=== PATIENT | female | born 1960 | race American Indian/Alaskan Native ===

== ENCOUNTER 2017-07-04 10:57 | Emergency (ER) | payer MEDICAID ==
[~2017-07-04] VITALS: Ht 160 cm; Wt 100.0 kg
[~2017-07-04 10:57] MED LIST: ALBU18HF2 INH; BACL10TA PO; DOCU-20 PO; HYDR-569 PO; NAPR-56 PO; RANI150C4 PO
[2017-07-04 11:25] LABS: BASOPHILS % (AUTO) 0.6 % (0-1); EOSINOPHILS # (AUTO) 0.3 X10'3 (0-0.9); EOSINOPHILS % (AUTO) 5.5 % (0-6); HEMATOCRIT 39.2 % (35.0-45.0); LYMPHOCYTES # (AUTO) 1.9 X10'3 (1.1-4.8); LYMPHOCYTES % (AUTO) 36.3 % (21-51); MEAN CORPUSCULAR HEMOGLOBIN 31.1 PG (27.0-31.0); MEAN CORPUSCULAR HGB CONC 35.7 % (33.0-36.5); MONOCYTES # (AUTO) 0.3 X10'3 (0-0.9); MONOCYTES % (AUTO) 4.8 % (2-12); NEUTROPHILS # (AUTO) 2.8 X10'3 (1.8-7.7); NEUTROPHILS % (AUTO) 52.8 % (42-75); PLATELET COUNT 219 X10'3 (140-440); RED CELL DISTRIBUTION WIDTH 13.2 % (11.5-14.5); WHITE BLOOD COUNT 5.3 X10'3 (4.5-11.0)
[2017-07-04 11:36] LABS: INR 0.9 INR; PARTIAL THROMBOPLASTIN TIME 25 SECONDS (22-32); PROTHROMBIN TIME 9.8 SECONDS (9.0-12.0)
[2017-07-04 11:40] LABS: ALANINE AMINOTRANSFERASE 16 U/L (12-78); ALBUMIN 3.7 G/DL (3.4-5.0); ALBUMIN/GLOBULIN RATIO 1.1 (1.1-1.5); ALKALINE PHOSPHATASE 97 IU/L (46-116); ANION GAP 9 (8-16); ASPARTATE AMINO TRANSFERASE 15 U/L (10-37); BILIRUBIN,TOTAL 0.9 MG/DL (0.1-1.0); BLOOD UREA NITROGEN 13 MG/DL (7-18); BUN/CREATININE RATIO 16.3 (6.6-38.0); CALCIUM 8.9 MG/DL (8.5-10.1); CHLORIDE 109 MMOL/L (99-107); GLUCOSE 101 MG/DL (70-104); POTASSIUM 4.3 MMOL/L (3.5-5.1); SODIUM 145 MMOL/L (135-145); TOTAL CARBON DIOXIDE 27.5 MMOL/L (24-32); TOTAL PROTEIN 7.2 G/DL (6.4-8.2); eGFR 74 ML/MIN
[2017-07-04 12:30] VITALS: BP 148/87
== END 2017-07-04 12:31 | disposition home or self-care (01) ==
LOC: ER 10:57
DX: R07.89 Other chest pain (principal); E78.00 Pure hypercholesterolemia, unspecified; I10 Essential (primary) hypertension; Z98.890 Other specified postprocedural states; Z98.51 Tubal ligation status; Z87.891 Personal history of nicotine dependence; Z88.2 Allergy status to sulfonamides; Z91.040 Latex allergy status; Z91.013 Allergy to seafood; Z79.899 Other long term (current) drug therapy
CPT/HCPCS: 36415; 71045; 80053; 84484; 85025; 85610; 85730; 93005; 99285; J7030

== ENCOUNTER 2018-01-17 19:04 | Emergency (ER) | payer MEDICAID ==
[~2018-01-17] VITALS: Ht 160 cm; Wt 108.0 kg
[2018-01-17 19:06] VITALS: BP 162/81
[2018-01-17] MEDS ORDERED: PRED50TA PO (21:18)
== END 2018-01-17 21:27 | disposition home or self-care (01) ==
LOC: ER 19:05
DX: L53.8 Other specified erythematous conditions (principal); T78.40XA Allergy, unspecified, initial encounter; R22.0 Localized swelling, mass and lump, head; L29.9 Pruritus, unspecified; E78.00 Pure hypercholesterolemia, unspecified; I10 Essential (primary) hypertension; Z90.710 Acquired absence of both cervix and uterus; Z98.890 Other specified postprocedural states; Z98.51 Tubal ligation status; Z88.1 Allergy status to other antibiotic agents; Z88.2 Allergy status to sulfonamides; Z91.040 Latex allergy status; Z79.899 Other long term (current) drug therapy; Z91.013 Allergy to seafood; Y92.9 Unspecified place or not applicable
CPT/HCPCS: 99283

== ENCOUNTER 2019-05-29 08:36 | Emergency (ER) | payer MEDICAID ==
[~2019-05-29] VITALS: Ht 160 cm; Wt 107.7 kg
[~2019-05-29 08:36] MED LIST changes: +HYDR-4383 PO; -HYDR-569 PO; +PRED50TA PO
[2019-05-29 09:15] LABS: BASOPHILS % (AUTO) 0.6 % (0-1); EOSINOPHILS # (AUTO) 0.4 X10'3 (0-0.9); HEMOGLOBIN 14.6 g/dl (12.0-16.0); MEAN CORPUSCULAR HEMOGLOBIN 31.3 PG (27.0-31.0); MEAN CORPUSCULAR HGB CONC 34.8 g/dL (33.0-36.5); MEAN PLATELET VOLUME 6.9 FL (7.4-10.4); MONOCYTES # (AUTO) 0.4 X10'3 (0-0.9); MONOCYTES % (AUTO) 5.7 % (2-12); NEUTROPHILS # (AUTO) 3.5 X10'3 (1.8-7.7); NEUTROPHILS % (AUTO) 55.7 % (42-75); PLATELET COUNT 236 X10'3 (140-440); RED BLOOD COUNT 4.67 X10'6 (4.20-5.60); RED CELL DISTRIBUTION WIDTH 13.3 % (11.5-14.5); WHITE BLOOD COUNT 6.3 X10'3 (4.5-11.0)
[2019-05-29 09:16] LABS: CLARITY,URINE SLIGHTLY CLOUDY (Clear); COLOR,URINE YELLOW (Yellow); GLUCOSE, URINE NEGATIVE (Neg); KETONES,URINE NEGATIVE (Neg); LEUKOCYTE ESTERASE ,URINE NEGATIVE (Neg); NITRITES, URINE NEGATIVE (Neg); OCCULT BLOOD,URINE MODERATE (Neg); PH,URINE 5.5 (4.8-8.0); PROTEIN,URINE NEGATIVE (Neg); UROBILINOGEN,URINE 0.2 E.U/dL (0.2-1.0)
[2019-05-29 09:20] LABS: UA COLLECTION TYPE CLN CATCH MIDSTREAM
[2019-05-29 09:28] LABS: ALANINE AMINOTRANSFERASE 30 U/L (12-78); ALBUMIN 3.8 G/DL (3.4-5.0); ALKALINE PHOSPHATASE 110 IU/L (46-116); ANION GAP 9 (8-16); ASPARTATE AMINO TRANSFERASE 20 U/L (10-37); BILIRUBIN,TOTAL 1.4 MG/DL (0.1-1.0); BLOOD UREA NITROGEN 11 MG/DL (7-18); BUN/CREATININE RATIO 12.1 (6.6-38.0); CALCIUM 8.7 MG/DL (8.5-10.1); CHLORIDE 108 MMOL/L (99-107); CREATININE 0.91 MG/DL (0.40-0.90); GLUCOSE 105 MG/DL (70-104); LIPASE 135 U/L (73-393); POTASSIUM 4.1 MMOL/L (3.5-5.1); SODIUM 144 MMOL/L (135-145); TOTAL CARBON DIOXIDE 26.8 MMOL/L (24-32); TOTAL PROTEIN 7.7 G/DL (6.4-8.2); eGFR 63 ML/MIN
[2019-05-29 09:32] LABS: MUCUS STRANDS FEW /LPF (Neg); SQUAMOUS EPITHELIAL CELL,UR MANY /LPF (FEW)
[2019-05-29 09:34] LABS: BACTERIA,URINE 1+ /HPF (Neg); RBC,URINE 0-2 /HPF (0-2); WBC,URINE 0-4 /HPF (0-4)
[2019-05-29] MEDS ORDERED: ondansetron/PF 4mg/2ml inj IV ONE (09:55)
[2019-05-29] MEDS ORDERED: morphine 4 MG/ML inj SYRINge IV ONE (09:55)
[2019-05-29] MEDS ORDERED: ONDA4TAB6 PO (12:08)
[2019-05-29] MEDS ORDERED: HYDR-3965 PO (12:08)
[2019-05-29 12:32] VITALS: BP 121/90
== END 2019-05-29 12:36 | disposition home or self-care (01) ==
LOC: ER 08:37
DX: R10.31 Right lower quadrant pain (principal); R10.32 Left lower quadrant pain; R11.0 Nausea; R50.9 Fever, unspecified; E78.00 Pure hypercholesterolemia, unspecified; I10 Essential (primary) hypertension; G89.29 Other chronic pain; F10.99 Alcohol use, unspecified with unspecified alcohol-induced disorder; Z90.710 Acquired absence of both cervix and uterus; Z98.890 Other specified postprocedural states; Z98.51 Tubal ligation status; Z91.013 Allergy to seafood; Z88.2 Allergy status to sulfonamides; Z88.1 Allergy status to other antibiotic agents; Z88.6 Allergy status to analgesic agent; Z91.040 Latex allergy status; Z88.8 Allergy status to other drugs, medicaments and biological substances; Z79.899 Other long term (current) drug therapy; Y90.9 Presence of alcohol in blood, level not specified
CPT/HCPCS: 36415; 74176; 80053; 81001; 83690; 84484; 85025; 93005; 96374; 96375; 99284; J2270; J2405

== ENCOUNTER 2020-06-26 19:22 | Emergency (ER) | payer MEDICAID ==
[~2020-06-26] VITALS: Ht 162.6 cm; Wt 51.1 kg
[~2020-06-26 19:22] MED LIST changes: +ONDA4TAB6 PO
[2020-06-26 20:03] LABS: BASOPHILS # (AUTO) 0.1 X10'3 (0-0.2); BASOPHILS % (AUTO) 0.7 % (0-1); EOSINOPHILS # (AUTO) 0.3 X10'3 (0-0.9); EOSINOPHILS % (AUTO) 4.7 % (0-6); HEMATOCRIT 40.5 % (35.0-45.0); HEMOGLOBIN 13.7 g/dl (12.0-16.0); LYMPHOCYTES # (AUTO) 2.9 X10'3 (1.1-4.8); LYMPHOCYTES % (AUTO) 39.7 % (21-51); MEAN CORPUSCULAR HEMOGLOBIN 30.5 PG (27.0-31.0); MEAN CORPUSCULAR HGB CONC 33.9 g/dL (33.0-36.5); MEAN CORPUSCULAR VOLUME 89.8 FL (78-98); MEAN PLATELET VOLUME 7.2 FL (7.4-10.4); MONOCYTES # (AUTO) 0.4 X10'3 (0-0.9); MONOCYTES % (AUTO) 5.4 % (2-12); NEUTROPHILS # (AUTO) 3.6 X10'3 (1.8-7.7); NEUTROPHILS % (AUTO) 49.5 % (42-75); PLATELET COUNT 246 X10'3 (140-440); RED BLOOD COUNT 4.51 X10'6 (4.20-5.60); RED CELL DISTRIBUTION WIDTH 13.7 % (11.5-14.5); WHITE BLOOD COUNT 7.2 X10'3 (4.5-11.0)
[2020-06-26 20:08] LABS: ALANINE AMINOTRANSFERASE 31 U/L (12-78); ALBUMIN 3.9 G/DL (3.4-5.0); ALKALINE PHOSPHATASE 109 IU/L (46-116); ANION GAP 9 (8-16); ASPARTATE AMINO TRANSFERASE 22 U/L (10-37); BLOOD UREA NITROGEN 13 MG/DL (7-18); BUN/CREATININE RATIO 15.3 (6.6-38.0); CALCIUM 9.1 MG/DL (8.5-10.1); CHLORIDE 107 MMOL/L (99-107); CREATININE 0.85 MG/DL (0.40-0.90); GLUCOSE 101 MG/DL (70-104); POTASSIUM 3.8 MMOL/L (3.5-5.1); SODIUM 142 MMOL/L (135-145); TOTAL CARBON DIOXIDE 26.2 MMOL/L (24-32); TOTAL PROTEIN 7.7 G/DL (6.4-8.2); eGFR 68 ML/MIN
[2020-06-26 23:10] VITALS: BP 137/87
== END 2020-06-26 23:30 | disposition home or self-care (01) ==
LOC: ER 19:22
DX: R07.82 Intercostal pain (principal); R06.02 Shortness of breath; E78.00 Pure hypercholesterolemia, unspecified; I10 Essential (primary) hypertension; Z72.89 Other problems related to lifestyle; Z91.041 Radiographic dye allergy status; Z91.040 Latex allergy status; Z91.013 Allergy to seafood; Z88.1 Allergy status to other antibiotic agents; Z88.2 Allergy status to sulfonamides; Z88.8 Allergy status to other drugs, medicaments and biological substances; Z79.899 Other long term (current) drug therapy
CPT/HCPCS: 36415; 71045; 80053; 83880; 84484; 85025; 93005; 99285

== ENCOUNTER 2020-10-25 21:37 | Emergency (ER) | payer MEDICAID ==
[~2020-10-25] VITALS: Ht 160 cm; Wt 113.6 kg
[~2020-10-25 21:37] MED LIST changes: -DOCU-20 PO; +DOCU-348 PO
[2020-10-25 21:57] VITALS: BP 139/67
[2020-10-25 22:18] LABS: BASOPHILS % (AUTO) 0.6 % (0-1); EOSINOPHILS # (AUTO) 0.3 X10'3 (0-0.9); EOSINOPHILS % (AUTO) 4.4 % (0-6); HEMOGLOBIN 13.6 g/dl (12.0-16.0); LYMPHOCYTES # (AUTO) 2.7 X10'3 (1.1-4.8); LYMPHOCYTES % (AUTO) 40.1 % (21-51); MEAN CORPUSCULAR HEMOGLOBIN 30.7 PG (27.0-31.0); MEAN CORPUSCULAR VOLUME 90.3 FL (78-98); MEAN PLATELET VOLUME 7.1 FL (7.4-10.4); MONOCYTES # (AUTO) 0.5 X10'3 (0-0.9); MONOCYTES % (AUTO) 7.1 % (2-12); NEUTROPHILS # (AUTO) 3.3 X10'3 (1.8-7.7); NEUTROPHILS % (AUTO) 47.8 % (42-75); PLATELET COUNT 235 X10'3 (140-440); RED BLOOD COUNT 4.43 X10'6 (4.20-5.60); RED CELL DISTRIBUTION WIDTH 13.9 % (11.5-14.5); WHITE BLOOD COUNT 6.8 X10'3 (4.5-11.0)
[2020-10-25] MEDS ORDERED: normal saline 1000ML IV soln IVB ONE (22:20)
[2020-10-25] MEDS ORDERED: ondansetron/PF 4mg/2ml inj IV ONE (22:20)
[2020-10-25 22:27] LABS: ALANINE AMINOTRANSFERASE 23 U/L (12-78); ALBUMIN 3.7 G/DL (3.4-5.0); ALBUMIN/GLOBULIN RATIO 0.9 (1.1-1.5); ALKALINE PHOSPHATASE 117 IU/L (46-116); ANION GAP 9 (8-16); ASPARTATE AMINO TRANSFERASE 19 U/L (10-37); BILIRUBIN,TOTAL 1.2 MG/DL (0.1-1.0); BLOOD UREA NITROGEN 12 MG/DL (7-18); BUN/CREATININE RATIO 12.6 (6.6-38.0); CALCIUM 9.4 MG/DL (8.5-10.1); CHLORIDE 107 MMOL/L (99-107); CREATININE 0.95 MG/DL (0.40-0.90); GLUCOSE 125 MG/DL (70-104); POTASSIUM 3.8 MMOL/L (3.5-5.1); SODIUM 146 MMOL/L (135-145); TOTAL CARBON DIOXIDE 30.3 MMOL/L (24-32); TOTAL PROTEIN 7.7 G/DL (6.4-8.2); eGFR 60 ML/MIN
[2020-10-25 22:34] LABS: TROPONIN I < 0.04 NG/ML (0.0-0.05)
[2020-10-25 23:29] LABS: D-DIMER 0.86 MG/L FEU (0-0.50)
== END 2020-10-26 01:38 | disposition home or self-care (01) ==
LOC: ER 21:37
DX: R42 Dizziness and giddiness (principal); I11.0 Hypertensive heart disease with heart failure; E78.00 Pure hypercholesterolemia, unspecified; Z88.5 Allergy status to narcotic agent; Z91.013 Allergy to seafood; Z88.2 Allergy status to sulfonamides; Z88.1 Allergy status to other antibiotic agents; Z91.040 Latex allergy status; Z88.8 Allergy status to other drugs, medicaments and biological substances
CPT/HCPCS: 36415; 71045; 71250; 80053; 83880; 84484; 85025; 85379; 93005; 96361; 96374; 99285; J2405; J7030

== ENCOUNTER 2022-08-30 10:54 | Day surgery (SDC) | payer MEDICAID ==
[2022-08-28 11:29] LABS: BASOPHILS % (AUTO) 0.7 % (0-1); EOSINOPHILS # (AUTO) 0.3 X10'3 (0-0.9); EOSINOPHILS % (AUTO) 4.5 % (0-6); LYMPHOCYTES # (AUTO) 2.1 X10'3 (1.1-4.8); MEAN CORPUSCULAR HEMOGLOBIN 30.5 PG (27.0-31.0); MEAN CORPUSCULAR HGB CONC 34.1 g/dL (33.0-36.5); MEAN CORPUSCULAR VOLUME 89.5 FL (78-98); MEAN PLATELET VOLUME 7.2 FL (7.4-10.4); MONOCYTES # (AUTO) 0.3 X10'3 (0-0.9); MONOCYTES % (AUTO) 6.2 % (2-12); NEUTROPHILS # (AUTO) 2.8 X10'3 (1.8-7.7); NEUTROPHILS % (AUTO) 50.6 % (42-75); PRE OP HEMATOCRIT 39.5 % (35.0-45.0); PRE OP HEMOGLOBIN 13.5 g/dL (12.0-16.0); PRE OP PLATELET COUNT 216 X10'3 (140-440); RED BLOOD COUNT 4.42 X10'6 (4.20-5.60); RED CELL DISTRIBUTION WIDTH 13.9 % (11.5-14.5)
[2022-08-28 11:39] LABS: CLARITY,URINE CLEAR (Clear); COLOR,URINE YELLOW (Yellow); GLUCOSE, URINE NEGATIVE (Neg); KETONES,URINE NEGATIVE (Neg); LEUKOCYTE ESTERASE ,URINE NEGATIVE (Neg); NITRITES, URINE NEGATIVE (Neg); OCCULT BLOOD,URINE MODERATE (Neg); PROTEIN,URINE NEGATIVE (Neg); UROBILINOGEN,URINE 0.2 E.U/dL (0.2-1.0)
[2022-08-28 11:41] LABS: UA COLLECTION TYPE CLN CATCH MIDSTREAM
[2022-08-28 11:50] LABS: WBC,URINE 0-4 /HPF (0-4)
[2022-08-28 11:52] LABS: BACTERIA,URINE FEW /HPF (Neg); MUCUS STRANDS MANY /LPF (Neg); SQUAMOUS EPITHELIAL CELL,UR MODERATE /LPF (FEW)
[2022-08-28 11:54] LABS: ALBUMIN 3.8 G/DL (3.4-5.0); ALKALINE PHOSPHATASE 115 IU/L (46-116); BLOOD UREA NITROGEN 13 MG/DL (7-18); CALCIUM 9.1 MG/DL (8.5-10.1); CHLORIDE 108 MMOL/L (99-107); CREATININE 0.81 MG/DL (0.40-0.90); PRE OP ALT 25 U/L (30-65); PRE OP ANION GAP 8 (8-16); PRE OP AST 24 U/L (10-37); PRE OP BILIRUB, TOTAL 1.7 MG/DL (0.0-1.0); PRE OP GLUCOSE 111 MG/DL (70-104); PRE OP SODIUM 144 MMOL/L (135-145); TOTAL CARBON DIOXIDE 28.2 MMOL/L (24-32); TOTAL PROTEIN 7.5 G/DL (6.4-8.2); eGFR 71 ML/MIN
[~2022-08-30] VITALS: Ht 160 cm; Wt 116.0 kg
[2022-08-30] VITALS (12 sets, daily range): BP systolic 99–167; BP diastolic 71–105
[~2022-08-30 10:54] MED LIST changes: +ACET-2971 PO; -BACL10TA PO; +CBD GUMMIES; +DIPH25CA83 PO; +ESTRADIOL CREAM; +LORA10TA7 PO; +LOSA25TA96 PO; -NAPR-56 PO; +NITR0.4T51 SL; -ONDA4TAB6 PO; -PRED50TA PO; -RANI150C4 PO; +ROSU20TA2 PO; +SENN8.6T19 PO; +albuterol 2.5 MG/3 ML nebule NEB ONE; +ceFOXitin 2GM-NS 100mL ADDvant 100 ML IV ONE; +famotidine 20mg tablet PO ONE; +ringers solution, lacted 1,000 ML IV SCH
[2022-08-30] MEDS ORDERED: BUPIVAcaine/PF 2.5 mg/ml (0.25%) 30ml vial ONE ×2 (13:57→14:17)
[2022-08-30] MEDS ORDERED: midazolam 1 mg/ML 2ml injection ONE (14:25)
[2022-08-30] MEDS ORDERED: fentaNYL/PF 50MCG/1 ML 2ML syringe ONE (14:25)
[2022-08-30] MEDS ORDERED: propofol inj 20 ML IV ONE (14:26)
[2022-08-30] MEDS ORDERED: rocuronium 10mg/ml inj IV ONE (14:29)
[2022-08-30] MEDS ORDERED: sevoflurane 250ml liquid IH ONE (14:31)
[2022-08-30] MEDS ORDERED: ondansetron/PF 4mg/2ml inj ONE (15:17)
[2022-08-30] MEDS ORDERED: dexamethasone sod phosphate 4mg/ml inj. ONE (15:18)
[2022-08-30] MEDS ORDERED: BUPIVAcaine/PF 2.5 mg/ml (0.25%) 30ml vial IJ ONE (15:24)
[2022-08-30] MEDS ORDERED: neostigmine methylsulfate 1 MG/ML 10ml vial ONE (15:25)
[2022-08-30] MEDS ORDERED: glycopyrrolate 0.2mg/ml inj ONE (15:26)
[2022-08-30] MEDS ORDERED: morphine 4 MG/ML inj SYRINge IV PRN (15:30)
[2022-08-30] MEDS ORDERED: ondansetron/PF 4mg/2ml inj IV PRN (15:30)
[2022-08-30] MEDS ORDERED: morphine 2 MG/ML inj. syringe IV PRN (15:30)
[2022-08-30] MEDS ORDERED: meperidine/PF 25mg/ml syringe IV PRN ×3 (15:30)
[2022-08-30] MEDS ORDERED: ringers solution, lacted 1,000 ML IV SCH (15:30)
[2022-08-30] MEDS ORDERED: proCHLORperazine 10 MG/2 ml inj IV PRN (15:30)
[2022-08-30] MEDS ORDERED: sugammadex 200mg/2ml injection IV ONE (15:38)
--- NOTE | 2022-08-30 15:46 | NUR ---
Received from OR via [facility] , accompanied by Anesthesiologist and report given by VALERY Anesthesiologist. PATIENT WAKING UP, NO S/S OF PAIN, V/S WNL, SCD ON , PIV 20G RIGHT WRIST, DERMABONDED LAPS SITES CLOSED C/D/I TO ABDOMEN. Addendum: 08/30/22 at 1620 by Guy Bledsoe RN Amended: Links added.
--- NOTE | 2022-08-30 17:41 | NUR ---
ALL DISCHARGE CRITERIA HAS BEEN MET. VSS, PAIN AT A TOLERABLE LEVEL, ABLE TO SAFELY AMBULATE AND TRANSFER SELF. IV TAKEN OUT WITHOUT ANY COMPLICATIONS. ALL DISCHARGE INSTRUCTIONS COVERED WITH PATIENT AND ALL QUESTIONS ANSWERED. PATIENT TAKEN OUT VIA WHEELCHAIR WITH ALL BELONGINGS TO PERSONAL VEHICLE WHERE FRIEND DROVE PATIENT HOME. Addendum: 08/30/22 at 1745 by Guy Bledsoe RN Amended: Links added.
== END 2022-08-30 17:41 | disposition home or self-care (01) ==
LOC: PAS 10:54
PROVIDERS: ATTEND Surgery
DX: K80.10 Calculus of gallbladder with chronic cholecystitis without obstruction (principal); Z79.899 Other long term (current) drug therapy; Z79.01 Long term (current) use of anticoagulants; J44.9 Chronic obstructive pulmonary disease, unspecified; G47.30 Sleep apnea, unspecified; Z87.891 Personal history of nicotine dependence; I25.2 Old myocardial infarction; Z86.73 Personal history of transient ischemic attack (TIA), and cerebral infarction without residual deficits; Z87.442 Personal history of urinary calculi; Z98.890 Other specified postprocedural states; G43.909 Migraine, unspecified, not intractable, without status migrainosus; G89.29 Other chronic pain; Z90.710 Acquired absence of both cervix and uterus
CPT/HCPCS: 36415; 47562; 80053; 81001; 82948; 85025; 93005; J0694; J0780; J1100; J2175; J2250; J2270; J2405; J2704; J2710; J3010; J3490; J7030; J7120; Z7506; Z7508; Z7512; A4215; A4618; A7000

== ENCOUNTER 2022-09-27 09:08 | Day surgery (SDC) | payer MEDICAID, OTHER ==
[~2022-09-27] VITALS: Ht 160 cm; Wt 115.8 kg
[~2022-09-27 09:08] MED LIST changes: -albuterol 2.5 MG/3 ML nebule NEB ONE; -ceFOXitin 2GM-NS 100mL ADDvant 100 ML IV ONE; -famotidine 20mg tablet PO ONE; -ringers solution, lacted 1,000 ML IV SCH
[2022-09-27 10:06] VITALS: BP 138/82
[2022-09-27] MEDS ORDERED: CHLOROprocaine 20mg/ml injection SQ ONE (10:10)
[2022-09-27 11:23] VITALS: BP 174/84
== END 2022-09-27 12:20 | disposition home or self-care (01) ==
LOC: SSTAY O 09:08
PROVIDERS: ATTEND Nurse Practitioner Family
DX: E04.1 Nontoxic single thyroid nodule (principal); I10 Essential (primary) hypertension; E78.00 Pure hypercholesterolemia, unspecified; I25.10 Atherosclerotic heart disease of native coronary artery without angina pectoris; E11.9 Type 2 diabetes mellitus without complications; Z88.2 Allergy status to sulfonamides; Z88.0 Allergy status to penicillin; Z88.8 Allergy status to other drugs, medicaments and biological substances; Z88.5 Allergy status to narcotic agent; Z91.013 Allergy to seafood; Z88.1 Allergy status to other antibiotic agents; Z91.040 Latex allergy status; Z79.899 Other long term (current) drug therapy
CPT/HCPCS: 10005; 60100; 76942; A6449

== ENCOUNTER 2022-12-09 11:59 | Emergency (ER) | payer MEDICAID ==
[~2022-12-09] VITALS: Ht 160 cm; Wt 114.0 kg
[~2022-12-09 11:59] MED LIST changes: -DIPH25CA83 PO; -DOCU-348 PO
[2022-12-09 13:13] LABS: EOSINOPHILS # (AUTO) 0.4 X10'3 (0-0.9); HEMOGLOBIN 13.7 g/dl (12.0-16.0); MEAN CORPUSCULAR HEMOGLOBIN 30.5 PG (27.0-31.0); MEAN PLATELET VOLUME 6.9 FL (7.4-10.4); MONOCYTES # (AUTO) 0.4 X10'3 (0-0.9); NEUTROPHILS # (AUTO) 3.1 X10'3 (1.8-7.7); RED BLOOD COUNT 4.49 X10'6 (4.20-5.60)
[2022-12-09 13:15] LABS: BASOPHILS % (AUTO) 0.6 % (0-1); EOSINOPHILS % (AUTO) 6.3 % (0-6); HEMATOCRIT 40.2 % (35.0-45.0); LYMPHOCYTES # (AUTO) 2.2 X10'3 (1.1-4.8); LYMPHOCYTES % (AUTO) 36.3 % (21-51); MEAN CORPUSCULAR VOLUME 89.6 FL (78-98); MONOCYTES % (AUTO) 6.3 % (2-12); NEUTROPHILS % (AUTO) 50.5 % (42-75); PLATELET COUNT 219 X10'3 (140-440); RED CELL DISTRIBUTION WIDTH 13.6 % (11.5-14.5); WHITE BLOOD COUNT 6.1 X10'3 (4.5-11.0)
[2022-12-09 13:24] LABS: ALANINE AMINOTRANSFERASE 30 U/L (12-78); ALBUMIN 3.9 G/DL (3.4-5.0); ALBUMIN/GLOBULIN RATIO 1.1 (1.1-1.5); ALKALINE PHOSPHATASE 125 IU/L (46-116); ANION GAP 9 (8-16); ASPARTATE AMINO TRANSFERASE 24 U/L (10-37); BILIRUBIN,TOTAL 1.9 MG/DL (0.1-1.0); BLOOD UREA NITROGEN 11 MG/DL (7-18); BUN/CREATININE RATIO 12.8 (10.0-20.0); CHLORIDE 106 MMOL/L (99-107); CREATININE 0.86 MG/DL (0.40-0.90); GLUCOSE 106 MG/DL (70-104); LIPASE 60 U/L (73-393); POTASSIUM 4.2 MMOL/L (3.5-5.1); SODIUM 144 MMOL/L (135-145); TOTAL CARBON DIOXIDE 29.1 MMOL/L (24-32); TOTAL PROTEIN 7.4 G/DL (6.4-8.2); eGFR 66 ML/MIN
[2022-12-09 13:57] VITALS: BP 141/92
[2022-12-09 14:06] LABS: CLARITY,URINE CLEAR (Clear); COLOR,URINE YELLOW (Yellow); GLUCOSE, URINE NEGATIVE (Neg); KETONES,URINE NEGATIVE (Neg); LEUKOCYTE ESTERASE ,URINE NEGATIVE (Neg); NITRITES, URINE NEGATIVE (Neg); OCCULT BLOOD,URINE MODERATE (Neg); PH,URINE 5.5 (4.8-8.0); PROTEIN,URINE NEGATIVE (Neg); UROBILINOGEN,URINE 0.2 E.U/dL (0.2-1.0)
[2022-12-09 14:07] LABS: URINE HCG NEGATIVE (NEG)
[2022-12-09 14:09] LABS: BACTERIA,URINE FEW /HPF (Neg); MUCUS STRANDS FEW /LPF (Neg); SQUAMOUS EPITHELIAL CELL,UR MANY /LPF (FEW); UA COLLECTION TYPE CLN CATCH MIDSTREAM; WBC,URINE 0-4 /HPF (0-4)
== END 2022-12-09 15:48 | disposition home or self-care (01) ==
LOC: ER 11:59
DX: K42.9 Umbilical hernia without obstruction or gangrene (principal); Z90.49 Acquired absence of other specified parts of digestive tract; R31.9 Hematuria, unspecified; E78.00 Pure hypercholesterolemia, unspecified; I10 Essential (primary) hypertension; I25.2 Old myocardial infarction; M79.7 Fibromyalgia; Z90.710 Acquired absence of both cervix and uterus; Z98.51 Tubal ligation status; Z72.89 Other problems related to lifestyle; Z87.891 Personal history of nicotine dependence; Z88.0 Allergy status to penicillin; Z88.2 Allergy status to sulfonamides; Z91.013 Allergy to seafood; Z91.041 Radiographic dye allergy status; Z91.040 Latex allergy status; Z88.1 Allergy status to other antibiotic agents
CPT/HCPCS: 74176; 80053; 81001; 81025; 83690; 85025; 99284; L0220

== ENCOUNTER 2023-01-10 06:28 | Inpatient (IN) | payer MEDICAID ==
[2023-01-03 14:50] LABS: BASOPHILS % (AUTO) 0.6 % (0-1); EOSINOPHILS # (AUTO) 0.3 X10'3 (0-0.9); EOSINOPHILS % (AUTO) 5.4 % (0-6); LYMPHOCYTES # (AUTO) 2.1 X10'3 (1.1-4.8); LYMPHOCYTES % (AUTO) 32.4 % (21-51); MEAN CORPUSCULAR HEMOGLOBIN 30.5 PG (27.0-31.0); MEAN CORPUSCULAR HGB CONC 34.2 g/dL (33.0-36.5); MEAN CORPUSCULAR VOLUME 89.2 FL (78-98); MONOCYTES # (AUTO) 0.4 X10'3 (0-0.9); MONOCYTES % (AUTO) 6.3 % (2-12); NEUTROPHILS # (AUTO) 3.6 X10'3 (1.8-7.7); NEUTROPHILS % (AUTO) 55.3 % (42-75); PRE OP HEMATOCRIT 39.5 % (35.0-45.0); PRE OP HEMOGLOBIN 13.5 g/dL (12.0-16.0); PRE OP PLATELET COUNT 226 X10'3 (140-440); RED BLOOD COUNT 4.43 X10'6 (4.20-5.60); RED CELL DISTRIBUTION WIDTH 13.8 % (11.5-14.5)
[2023-01-03 15:02] LABS: ALBUMIN 3.8 G/DL (3.4-5.0); ALBUMIN/GLOBULIN RATIO 1.1 (1.1-1.5); ALKALINE PHOSPHATASE 108 IU/L (46-116); BLOOD UREA NITROGEN 10 MG/DL (7-18); BUN/CREATININE RATIO 11.6 (10.0-20.0); CALCIUM 9.4 MG/DL (8.5-10.1); CHLORIDE 108 MMOL/L (99-107); CREATININE 0.86 MG/DL (0.40-0.90); PRE OP ALT 31 U/L (30-65); PRE OP ANION GAP 11 (8-16); PRE OP AST 27 U/L (10-37); PRE OP BILIRUB, TOTAL 1.6 MG/DL (0.0-1.0); PRE OP GLUCOSE 138 MG/DL (70-104); PRE OP POTASSIUM 3.6 MMOL/L (3.4-5.1); PRE OP SODIUM 145 MMOL/L (135-145); TOTAL CARBON DIOXIDE 26.3 MMOL/L (24-32); TOTAL PROTEIN 7.4 G/DL (6.4-8.2); eGFR 66 ML/MIN
[2023-01-03 15:03] LABS: CLARITY,URINE CLOUDY (Clear); COLOR,URINE YELLOW (Yellow); GLUCOSE, URINE NEGATIVE (Neg); KETONES,URINE NEGATIVE (Neg); LEUKOCYTE ESTERASE ,URINE NEGATIVE (Neg); NITRITES, URINE NEGATIVE (Neg); OCCULT BLOOD,URINE SMALL (Neg); PH,URINE 5.5 (4.8-8.0); PROTEIN,URINE NEGATIVE (Neg); UROBILINOGEN,URINE 0.2 E.U/dL (0.2-1.0)
[2023-01-03 15:08] LABS: UA COLLECTION TYPE CLN CATCH MIDSTREAM
[2023-01-03 15:11] LABS: MUCUS STRANDS MANY /LPF (Neg); SQUAMOUS EPITHELIAL CELL,UR MANY /LPF (FEW)
[2023-01-03 15:12] LABS: BACTERIA,URINE 1+ /HPF (Neg)
[2023-01-03 15:13] LABS: TRANSITIONAL EPI CELLS,URINE FEW /HPF
[2023-01-03 15:18] LABS: WBC,URINE 0-4 /HPF (0-4)
[2023-01-10] VITALS (31 sets, daily range): BP systolic 97–133; BP diastolic 49–91; PULSE 55–72; RESP 8–20; TEMP 97.4–98.2; O2SAT 91–98
[~2023-01-10] VITALS: Ht 160 cm; Wt 114.8 kg
[~2023-01-10 06:28] MED LIST changes: -ACET-2971 PO; -CBD GUMMIES; -ESTRADIOL CREAM; -LORA10TA7 PO; -SENN8.6T19 PO; +famotidine 20mg tablet PO ONE; +ringers solution, lacted 1,000 ML IV SCH
[2023-01-10] MEDS ORDERED: SENN-263 PO (07:12)
[2023-01-10] MEDS ORDERED: BUPIVAcaine/PF 2.5 mg/ml (0.25%) 30ml vial ONE ×2 (07:15→10:53)
--- NOTE | 2023-01-10 08:11 | NUR ---
STATES HAS INTERMITTENT DIZZINESS AND FALLS DOWN FREQUENTLY Addendum: 01/10/23 at 0817 by Doreen Prater RN Amended: Links added.
[2023-01-10] MEDS ORDERED: clindamycin-Cleocin 900mg/D5W 50 ML IV ONE (08:55)
[2023-01-10] MEDS ORDERED: sevoflurane 250ml liquid IH ONE (11:26)
[2023-01-10] MEDS ORDERED: LIDOcaine 2% (20mg/ml) 5ml vial ONE (11:26)
[2023-01-10] MEDS ORDERED: fentaNYL/PF 50MCG/1 ML 2ML syringe ONE (11:29)
[2023-01-10] MEDS ORDERED: midazolam 1 mg/ML 2ml injection ONE (11:30)
[2023-01-10] MEDS ORDERED: propofol inj 20 ML IV ONE (11:36)
[2023-01-10] MEDS ORDERED: rocuronium 10mg/ml inj IV ONE (11:36)
[2023-01-10] MEDS ORDERED: ondansetron/PF 4mg/2ml inj IV PRN ×2 (11:50→16:40)
[2023-01-10] MEDS ORDERED: ringers solution, lacted 1,000 ML IV SCH (11:50)
[2023-01-10] MEDS ORDERED: proCHLORperazine 10 MG/2 ml inj IV PRN (11:50)
[2023-01-10] MEDS ORDERED: meperidine/PF 25mg/ml syringe IV PRN ×3 (11:50)
[2023-01-10] MEDS ORDERED: ondansetron/PF 4mg/2ml inj ONE (13:11)
[2023-01-10] MEDS ORDERED: neostigmine methylsulfate 1 MG/ML 10ml vial ONE (13:11)
[2023-01-10] MEDS ORDERED: dexamethasone sod phosphate 4mg/ml inj. ONE (13:11)
[2023-01-10] MEDS ORDERED: glycopyrrolate 0.2mg/ml inj ONE (13:11)
[2023-01-10] MEDS: morphine 4 MG/ML inj SYRINge IV PRN ×2 (13:40→14:01)
[2023-01-10] MEDS: morphine 2 MG/ML inj. syringe IV PRN ×2 (13:50→16:34)
[2023-01-10] MEDS ORDERED: ketorolac trometh. 30mg/ml inj. IV ONE (14:25)
[2023-01-10] MEDS ORDERED: acetaminophen 1,000mg/100ml IV 100 ML IV ONE (14:25)
[2023-01-10] MEDS ORDERED: HYDROcodone/acetaminophen 5mg/325mg tablet PO PRN (16:00)
[2023-01-10] MEDS ORDERED: nitroGLYCERIN 0.4mg SUBLingual tab SL PRN (16:00)
[2023-01-10] MEDS: normal saline 1000ml 1,000 ML IV SCH (16:40)
[2023-01-10] MEDS ORDERED: magnesium 4gm in 100ml NS 100 ML IV PRN (16:40)
[2023-01-10] MEDS ORDERED: morphine 2 MG/ML inj. syringe IV PRN ×2 (16:40)
[2023-01-10] MEDS ORDERED: potassium Cl 40MEQ/1/2NS 520ml 520 ML IV PRN (16:40)
[2023-01-10] MEDS ORDERED: HYDROcodone/acetaminophen 10/325mg tab PO PRN (16:40)
[2023-01-10] MEDS ORDERED: magnesium hydroxide 30ml (MOM) UD suspension PO PRN (16:40)
[2023-01-10] MEDS ORDERED: potassium Cl 20 mEq SR tablet PO PRN ×2 (16:40)
[2023-01-10] MEDS ORDERED: magnesium Cl slow-release 64mg tablet PO PRN (16:40)
[2023-01-10] MEDS ORDERED: acetaminophen 325mg tablet PO PRN ×2 (16:40)
[2023-01-10] MEDS ORDERED: mag hydrox/Alum hydrox/simeth 30ml oral suspension PO PRN (16:40)
[2023-01-10] MEDS ORDERED: magnesium 2GM in 50ml NS 50 ML IV PRN (16:40)
[2023-01-10] MEDS ORDERED: albuterol 2.5 MG/3 ML nebule NEB PRN (16:40)
--- NOTE | 2023-01-10 17:30 | NUR ---
received report from recovery and had the opportunity to ask questions prior to assuming patient care.
--- NOTE | 2023-01-10 17:35 | NUR ---
Report called to receiving nurse. Transferred via BED W CELL PHONE AND 1 Belongings BAG TO ROOM [facility]. PT BECAME NAUSEATED IN ROUTE TO HER ROOM, 5 MG COMPAZINE GIVEN FOR NAUSEA. BLL, CALL LIGHT GIVEN, SIDE RAILS UP, RECEIVING NURSE AT BEDSIDE. Special Issues communicated to receiving nurse. YES. Addendum: 01/10/23 at 1812 by Meg Muniz RN Amended: Links added.
--- NOTE | 2023-01-10 17:45 | NUR ---
Pt brought up from recovery, VSS, oriented to room, fall precautions and call light system. Incision CDI.
--- NOTE | 2023-01-10 18:00 | NUR ---
I have reviewed and agree with all assessments and documentation by Coco Kapoor LVN.
--- NOTE | 2023-01-10 18:45 | NUR ---
Patient in room [facility]THO 4014. I have received report from Coco TORRES and had the opportunity to ask questions and assume patient care.
[2023-01-10 18:46] LABS: ANION GAP 8 (8-16); BILIRUBIN,TOTAL 1.9 MG/DL (0.1-1.0); BLOOD UREA NITROGEN 14 MG/DL (7-18); BUN/CREATININE RATIO 15.1 (10.0-20.0); CALCIUM 8.7 MG/DL (8.5-10.1); CHLORIDE 105 MMOL/L (99-107); CREATININE 0.93 MG/DL (0.40-0.90); GLUCOSE 163 MG/DL (70-104); POTASSIUM 3.9 MMOL/L (3.5-5.1); SODIUM 141 MMOL/L (135-145); eGFR 61 ML/MIN
[2023-01-10 18:47] LABS: ALANINE AMINOTRANSFERASE 28 U/L (12-78); ALBUMIN 3.5 G/DL (3.4-5.0); ALKALINE PHOSPHATASE 112 IU/L (46-116); ASPARTATE AMINO TRANSFERASE 29 U/L (10-37); TOTAL PROTEIN 6.9 G/DL (6.4-8.2)
[2023-01-10] MEDS: ROSUVASTATIN CALCIUM 5 MG TABLET PO SCH (20:00)
[2023-01-10] MEDS: losartan 25mg tablet PO SCH (20:00)
[2023-01-10] MEDS: enoxaparin 40mg/0.4ml syringe SQ SCH (23:55)
[2023-01-10] MEDS: docusate sod 100mg capsule PO SCH (23:56)
[2023-01-11] VITALS (10 sets, daily range): BP systolic 86–106; BP diastolic 34–43; PULSE 47–72; RESP 16–23; TEMP 97.9–98.1; O2SAT 92–98
--- NOTE | 2023-01-11 03:16 | NUR ---
Unfortunately the post -op vital signs were not all done during early shift . However, VS have been stable.
--- NOTE | 2023-01-11 06:55 | NUR ---
Patient report given to Coco Ba.
[2023-01-11] MEDS: HYDROcodone/acetaminophen 5mg/325mg tablet PO PRN ×4 (07:48→20:42)
[2023-01-11] MEDS: docusate sod 100mg capsule PO SCH ×2 (07:48→20:21)
[2023-01-11] MEDS: ROSUVASTATIN CALCIUM 5 MG TABLET PO SCH ×2 (07:51→20:22)
[2023-01-11] MEDS: losartan 25mg tablet PO SCH ×2 (07:53→20:00)
[2023-01-11 08:46] LABS: BASOPHILS % (AUTO) 0.1 % (0-1); EOSINOPHILS % (AUTO) 0 % (0-6); HEMATOCRIT 35.2 % (35.0-45.0); HEMOGLOBIN 12.4 g/dl (12.0-16.0); LYMPHOCYTES # (AUTO) 0.9 X10'3 (1.1-4.8); LYMPHOCYTES % (AUTO) 10.8 % (21-51); MEAN CORPUSCULAR HEMOGLOBIN 31.5 PG (27.0-31.0); MEAN CORPUSCULAR HGB CONC 35.2 g/dL (33.0-36.5); MEAN CORPUSCULAR VOLUME 89.5 FL (78-98); MEAN PLATELET VOLUME 7.4 FL (7.4-10.4); MONOCYTES # (AUTO) 0.3 X10'3 (0-0.9); MONOCYTES % (AUTO) 4.1 % (2-12); NEUTROPHILS # (AUTO) 6.8 X10'3 (1.8-7.7); PLATELET COUNT 201 X10'3 (140-440); RED BLOOD COUNT 3.93 X10'6 (4.20-5.60); RED CELL DISTRIBUTION WIDTH 13.9 % (11.5-14.5)
[2023-01-11 08:49] LABS: ALBUMIN 3.2 G/DL (3.4-5.0); ANION GAP 9 (8-16); BLOOD UREA NITROGEN 15 MG/DL (7-18); BUN/CREATININE RATIO 18.1 (10.0-20.0); CALCIUM 8.5 MG/DL (8.5-10.1); CHLORIDE 107 MMOL/L (99-107); CREATININE 0.83 MG/DL (0.40-0.90); GLUCOSE 132 MG/DL (70-104); POTASSIUM 4.1 MMOL/L (3.5-5.1); SODIUM 141 MMOL/L (135-145); TOTAL CARBON DIOXIDE 25.3 MMOL/L (24-32); eGFR 69 ML/MIN
[2023-01-11] MEDS: normal saline 1000ml 1,000 ML IV SCH ×2 (12:40→16:45)
--- NOTE | 2023-01-11 15:35 | NUR ---
HEALTHCARE ADMINISTRATIVE ASSISTANT documentation: I have reviewed and agree with all interventions, assessments performed and documented by Coco Edge LVN.
--- NOTE | 2023-01-11 19:45 | NUR ---
Took over care of pt from Little CONNELL at this time.
[2023-01-11] MEDS: enoxaparin 40mg/0.4ml syringe SQ SCH (20:21)
--- NOTE | 2023-01-11 21:30 | NUR ---
Problems reprioritized. Patient report given, questions answered & plan of care reviewed with BECKI CONTEH.
[2023-01-12] VITALS (7 sets, daily range): BP systolic 107–153; BP diastolic 60–91; PULSE 49–58; RESP 13–19; TEMP 97.9–98.4; O2SAT 95–98
[2023-01-12] MEDS: HYDROcodone/acetaminophen 5mg/325mg tablet PO PRN ×4 (00:24→20:29)
[2023-01-12] MEDS ORDERED: diphenhydrAMINE 25mg capsule PO PRN (01:55)
--- NOTE | 2023-01-12 06:33 | NUR ---
Problems reprioritized. Patient report given, questions answered & plan of care reviewed with Danielle TORRES.
--- NOTE | 2023-01-12 06:38 | NUR ---
I have received report from BECKI Lynn and had the opportunity to ask questions and assume patient care. No distress at this time.
[2023-01-12] MEDS: ROSUVASTATIN CALCIUM 5 MG TABLET PO SCH ×2 (08:46→19:33)
[2023-01-12] MEDS: losartan 25mg tablet PO SCH ×2 (08:50→19:37)
[2023-01-12] MEDS: docusate sod 100mg capsule PO SCH (08:57)
[2023-01-12] MEDS ORDERED: LOSA25TA96 PO (12:00)
[2023-01-12] MEDS ORDERED: BISA-78 PO (12:07)
[2023-01-12] MEDS ORDERED: POLY17PO10 PO (12:10)
[2023-01-12] MEDS ORDERED: HYDROcodone/acetaminophen 10/325mg tab PO PRN (12:25)
[2023-01-12] MEDS ORDERED: morphine 2 MG/ML inj. syringe IV PRN (12:25)
[2023-01-12] MEDS ORDERED: HYDROcodone/acetaminophen 5mg/325mg tablet PO PRN (12:25)
[2023-01-12] MEDS ORDERED: methylnaltrexone br 12mg/0.6ml inj***SubQ only SQ PRN (12:30)
--- NOTE | 2023-01-12 13:51 | NUR ---
CARBON LAMP CLEANER documentation: I have reviewed and agree with all interventions, assessments performed and documented by Danielle Menezes LVN .
--- NOTE | 2023-01-12 16:25 | NUR ---
Spoke w/ doctor Garcia in re: to patient having N/V and doesn't feel stable enough to go home at this time. Patient is still having pain even w/ pain medication administered as prescribed. N/V started after consuming C.L diet, Dr. Garcia notified and agreed for the pt to stay over one more night to monitor.
--- NOTE | 2023-01-12 18:13 | NUR ---
Problems reprioritized. Patient report given, questions answered & plan of care reviewed with BECKI Ireen.
--- NOTE | 2023-01-12 18:20 | NUR ---
Patient in room ORTHO 4014. I have received report from BECKI MARTINEZ and had the opportunity to ask questions and assume patient care.
[2023-01-12] MEDS: enoxaparin 40mg/0.4ml syringe SQ SCH (19:37)
[2023-01-13] MEDS: HYDROcodone/acetaminophen 5mg/325mg tablet PO PRN ×2 (03:00→08:04)
--- NOTE | 2023-01-13 03:00 | NUR ---
Pt. complained of pain, she went to the bathroom with help and back to bed hyperventilating. CPap on still hyperventilating. Resiratory personnel paged seen the pt. VS checked BP 140/72, HR 63 , RR 48 t-97.5and O2 sat 100%. Pt semi flat on bed and breathing normally. CPap placed by Respiratory staff and made her comforbable in bed. VS rechecked BP 121/60 HR 54, RR 19 O2 sat 98.
[2023-01-13 03:20] VITALS: PULSE 64; RESP 30; O2SAT 98
[2023-01-13 03:35] VITALS: PULSE 58; RESP 21; O2SAT 98
[2023-01-13 06:00] VITALS: BP 121/60; PULSE 52; RESP 16; TEMP 98.1; O2SAT 97
--- NOTE | 2023-01-13 06:25 | NUR ---
Problems reprioritized. Patient report given, questions answered & plan of care reviewed with BECKI GUERRA.
[2023-01-13 06:34] LABS: BASOPHILS % (AUTO) 0.6 % (0-1); EOSINOPHILS # (AUTO) 0.5 X10'3 (0-0.9); EOSINOPHILS % (AUTO) 8.6 % (0-6); HEMATOCRIT 32.2 % (35.0-45.0); LYMPHOCYTES # (AUTO) 1.8 X10'3 (1.1-4.8); LYMPHOCYTES % (AUTO) 33.8 % (21-51); MEAN CORPUSCULAR HEMOGLOBIN 31.1 PG (27.0-31.0); MEAN CORPUSCULAR HGB CONC 34.2 g/dL (33.0-36.5); MEAN CORPUSCULAR VOLUME 90.9 FL (78-98); MEAN PLATELET VOLUME 7.4 FL (7.4-10.4); MONOCYTES # (AUTO) 0.4 X10'3 (0-0.9); MONOCYTES % (AUTO) 6.8 % (2-12); NEUTROPHILS # (AUTO) 2.7 X10'3 (1.8-7.7); NEUTROPHILS % (AUTO) 50.2 % (42-75); PLATELET COUNT 165 X10'3 (140-440); RED BLOOD COUNT 3.54 X10'6 (4.20-5.60); RED CELL DISTRIBUTION WIDTH 13.9 % (11.5-14.5); WHITE BLOOD COUNT 5.4 X10'3 (4.5-11.0)
--- NOTE | 2023-01-13 06:40 | NUR ---
Patient in room ORTH[facility] 4014. I have received report from Cande and had the opportunity to ask questions and assume patient care.
[2023-01-13 06:51] LABS: ALBUMIN 2.9 G/DL (3.4-5.0); ANION GAP 8 (8-16); BLOOD UREA NITROGEN 11 MG/DL (7-18); BUN/CREATININE RATIO 13.9 (10.0-20.0); CHLORIDE 108 MMOL/L (99-107); CREATININE 0.79 MG/DL (0.40-0.90); GLUCOSE 99 MG/DL (70-104); POTASSIUM 3.5 MMOL/L (3.5-5.1); SODIUM 144 MMOL/L (135-145); TOTAL CARBON DIOXIDE 28.4 MMOL/L (24-32); eGFR 73 ML/MIN
[2023-01-13] MEDS: normal saline 1000ml 1,000 ML IV SCH (08:04)
[2023-01-13 08:57] VITALS: RESP 14; O2SAT 97
[2023-01-13] MEDS: ROSUVASTATIN CALCIUM 5 MG TABLET PO SCH (08:57)
[2023-01-13] MEDS: losartan 25mg tablet PO SCH (08:57)
[2023-01-13 10:00] VITALS: BP 127/68; PULSE 68; RESP 18; TEMP 98.3; O2SAT 93
--- NOTE | 2023-01-13 11:56 | NUR ---
Reviewed discharge instructions with patient. Patient verbalized understanding. Patient was able to dress herself, gather her belongings and ready herself for discharge. Patient does express having some pain still, especially with getting up and into a chair. Patient phoned a friend to pick her up and was wheeled downstairs to be driven home.
== END 2023-01-13 11:54 | disposition home health service (06) | DRG 227 ==
LOC: PAS 06:28 → INTOOBSV 16:48 → ORTHO 4S 16:48 → OBSVTOIN 16:48
PROVIDERS: ADMIT Internal Medicine; ATTEND Surgery
PROC: 0WUF4JZ Supplement Abdominal Wall with Synthetic Substitute, Percutaneous Endoscopic Approach (ICD-10-PCS; principal; 2023-01-11)
PROC: 5A09357 Assistance with Respiratory Ventilation, Less than 24 Consecutive Hours, Continuous Positive Airway Pressure (ICD-10-PCS; 2023-01-11)
PROC: 5A09357 Assistance with Respiratory Ventilation, Less than 24 Consecutive Hours, Continuous Positive Airway Pressure (ICD-10-PCS; 2023-01-12)
DX: K43.0 Incisional hernia with obstruction, without gangrene (principal); E66.01 Morbid (severe) obesity due to excess calories; G47.33 Obstructive sleep apnea (adult) (pediatric); I10 Essential (primary) hypertension; G89.29 Other chronic pain; M79.7 Fibromyalgia; J44.9 Chronic obstructive pulmonary disease, unspecified; R09.02 Hypoxemia; Z86.73 Personal history of transient ischemic attack (TIA), and cerebral infarction without residual deficits; I25.2 Old myocardial infarction; Z87.891 Personal history of nicotine dependence; Z90.710 Acquired absence of both cervix and uterus; Z68.41 Body mass index [BMI] 40.0-44.9, adult; Z88.5 Allergy status to narcotic agent; Z88.0 Allergy status to penicillin; Z88.2 Allergy status to sulfonamides; Z91.040 Latex allergy status; Z91.013 Allergy to seafood; Z90.49 Acquired absence of other specified parts of digestive tract; Z98.51 Tubal ligation status; Z79.899 Other long term (current) drug therapy; Z85.41 Personal history of malignant neoplasm of cervix uteri
CPT/HCPCS: 36415; 80048; 80053; 81001; 82948; 84145; 85025; 94660; 97116; 97161; 97530; A4615; A4618; A7000; C1781; G0378; J0131; J0780; J1100; J1650; J1885; J2175; J2250; J2270; J2405; J2704; J2710; J3010; J3490; J7030; J7120; Q0163

== ENCOUNTER 2023-03-29 14:32 | Emergency (ER) | payer MEDICAID ==
[~2023-03-29] VITALS: Ht 160 cm; Wt 113.2 kg
[~2023-03-29 14:32] MED LIST changes: +BISA-78 PO; +LOSA-415 PO; -LOSA25TA96 PO; +POLY17PO10 PO; -famotidine 20mg tablet PO ONE; -ringers solution, lacted 1,000 ML IV SCH
[2023-03-29 15:12] LABS: BASOPHILS % (AUTO) 0.6 % (0-1); EOSINOPHILS # (AUTO) 0.3 X10'3 (0-0.9); EOSINOPHILS % (AUTO) 5.8 % (0-6); HEMOGLOBIN 13.8 g/dl (12.0-16.0); LYMPHOCYTES # (AUTO) 1.9 X10'3 (1.1-4.8); LYMPHOCYTES % (AUTO) 33.3 % (21-51); MEAN CORPUSCULAR HEMOGLOBIN 29.9 PG (27.0-31.0); MEAN CORPUSCULAR HGB CONC 33.7 g/dL (33.0-36.5); MEAN CORPUSCULAR VOLUME 88.7 FL (78-98); MEAN PLATELET VOLUME 6.9 FL (7.4-10.4); MONOCYTES # (AUTO) 0.3 X10'3 (0-0.9); MONOCYTES % (AUTO) 6.1 % (2-12); NEUTROPHILS # (AUTO) 3.1 X10'3 (1.8-7.7); NEUTROPHILS % (AUTO) 54.2 % (42-75); PLATELET COUNT 218 X10'3 (140-440); RED BLOOD COUNT 4.62 X10'6 (4.20-5.60); RED CELL DISTRIBUTION WIDTH 13.9 % (11.5-14.5); WHITE BLOOD COUNT 5.7 X10'3 (4.5-11.0)
[2023-03-29 15:15] LABS: ALANINE AMINOTRANSFERASE 29 U/L (12-78); ALBUMIN 3.8 G/DL (3.4-5.0); ALKALINE PHOSPHATASE 116 IU/L (46-116); ANION GAP 10 (8-16); ASPARTATE AMINO TRANSFERASE 23 U/L (10-37); BILIRUBIN,TOTAL 1.8 MG/DL (0.1-1.0); BLOOD UREA NITROGEN 11 MG/DL (7-18); BUN/CREATININE RATIO 14.5 (10.0-20.0); CALCIUM 9.3 MG/DL (8.5-10.1); CHLORIDE 106 MMOL/L (99-107); CREATININE 0.76 MG/DL (0.40-0.90); GLUCOSE 105 MG/DL (70-104); POTASSIUM 3.8 MMOL/L (3.5-5.1); SODIUM 141 MMOL/L (135-145); TOTAL CARBON DIOXIDE 25.2 MMOL/L (24-32); TOTAL PROTEIN 7.6 G/DL (6.4-8.2); eCRCL 62 ML/MIN; eGFR 77 ML/MIN
[2023-03-29 15:23] LABS: PRO BRAIN NATRIURETIC PEPTIDE 52 PG/ML (0-125)
--- NOTE | 2023-03-29 15:28 | NUR ---
pt stated during assessment that she had thoughts of last night 03/28 when she was having a dizzy spell. she says that she has no plan or means to commit. pt believes she had a TIA 2 weeks ago but did not go to the doctor. says it has happened a few times in the past and nothing doctor could do so she didnt seek medical help. has had 4 days of dizziness and nausea while resting and on exertion. fell couple of times as well. is not on thinners.
--- NOTE | 2023-03-29 15:37 | NUR ---
pt with CT
--- NOTE | 2023-03-29 16:27 | NUR ---
continues to have dizziness and nausea. 3 episodes so far while in ER. neuro consult ordered.
[2023-03-29] MEDS ORDERED: methylPREDNISolone sod succ 125mg/2ml vial IV ONE (17:35)
[2023-03-29] MEDS ORDERED: diphenhydrAMINE 50 mg/ml inj IV ONE (17:35)
[2023-03-29] MEDS ORDERED: methylPREDNISolone sod succ/PF 40mg inj. IV ONE (17:40)
[2023-03-29] MEDS ORDERED: iohexol 350MG/ML 100ml bottle IV ONE (18:39)
[2023-03-29] MEDS ORDERED: normal saline 1000ML IV soln IVB ONE (18:45)
[2023-03-29] MEDS ORDERED: MECL-231 PO ×3 (22:03→22:21)
[2023-03-29 22:30] VITALS: BP 137/80; PULSE 65; RESP 16; TEMP 98.3; O2SAT 96
== END 2023-03-29 22:33 | disposition home or self-care (01) ==
LOC: ER 14:33
DX: R42 Dizziness and giddiness (principal); I11.0 Hypertensive heart disease with heart failure; E78.00 Pure hypercholesterolemia, unspecified; Z88.5 Allergy status to narcotic agent; Z88.8 Allergy status to other drugs, medicaments and biological substances; Z79.899 Other long term (current) drug therapy
CPT/HCPCS: 36415; 70450; 70496; 70498; 71045; 80053; 83880; 84484; 85025; 93005; 96361; 96374; 96375; 99285; J1200; J2920; J3490; J7030; Q9967

== ENCOUNTER 2023-10-01 15:44 | Emergency (ER) | payer OTHER, MEDICARE, MEDICAID ==
[~2023-10-01] VITALS: Ht 160 cm; Wt 118.2 kg
[~2023-10-01 15:44] MED LIST changes: +MECL-231 PO
[2023-10-01 16:14] VITALS: TEMP 98; O2SAT 98
[2023-10-01] MEDS: ondansetron 4mg rapidly disintigrating tab PO ONE (20:07)
[2023-10-01 20:54] VITALS: BP 152/80; PULSE 84; RESP 16
== END 2023-10-01 20:57 | disposition home or self-care (01) ==
LOC: ER 15:44
DX: S16.1XXA Strain of muscle, fascia and tendon at neck level, initial encounter (principal); K46.9 Unspecified abdominal hernia without obstruction or gangrene; E78.00 Pure hypercholesterolemia, unspecified; I10 Essential (primary) hypertension; Z90.710 Acquired absence of both cervix and uterus; Z98.51 Tubal ligation status; Z88.5 Allergy status to narcotic agent; Z88.0 Allergy status to penicillin; Z88.1 Allergy status to other antibiotic agents; Z91.013 Allergy to seafood; Z91.041 Radiographic dye allergy status; Z91.012 Allergy to eggs; V89.2XXA Person injured in unspecified motor-vehicle accident, traffic, initial encounter; Y93.89 Activity, other specified; Y92.89 Other specified places as the place of occurrence of the external cause; Y99.8 Other external cause status
CPT/HCPCS: 72125; 74176; 99284